=== PATIENT | male | born 1970 | race Two or more races ===

== ENCOUNTER → 2020-07-22 | Outpatient (CLI) | payer OTHER ==
[2016-10-07 11:51] VITALS: BP 118/66
[~2020-07-22] MED LIST: ASPI-482 PO; CYCL10TA2 PO; DOCU-109 PO; ONDA4TAB10 SL; OXYC1TAB15 PO; OXYC1TAB22 PO; POLY17PO29 PO
--- NOTE | 2020-07-22 07:38 | RAD ---
ABDOMEN COMPLETE History: Abdominal pain for a few weeks, right flank and right lower quadrant pain Comparison: None. Findings: Multiple sonographic images of the abdomen are submitted. Gallbladder is present without demonstrable shadowing intraluminal abnormality, pericholecystic fluid, or wall thickening. There is segmental visualization of the inferior vena cava. Pancreas is not well-visualized due to bowel gas. Visualized abdominal aortic caliber is within normal limits. There is slightly coarsened hepatic echotexture. Right lobe of liver measured 13.5 cm longitudinal. Right kidney measured 10.5 x 4.4 x 4.6 cm, no hydronephrosis. Left kidney measured 10.8 x 5.5 x 4.2 cm, no hydronephrosis. Spleen measured up to 8.8 cm. Appendix could not be visualized. No free fluid is demonstrated. Common bile duct is not demonstrated. Impression: 1. There is no demonstrable evidence of cholelithiasis. There may be mild hepatic steatosis. Appendix could not be visualized. Electronically signed by: Ron Rendon MD (07/22/2020 7:35 AM) [facility]
== END ==
LOC: US 06:45
PROVIDERS: ATTEND Family Medicine
DX: K76.0 Fatty (change of) liver, not elsewhere classified (principal); R10.9 Unspecified abdominal pain
CPT/HCPCS: 76700